=== PATIENT | female | born 1990 | race Caucasian/White ===

== ENCOUNTER 2017-05-22 14:58 | Inpatient (IN) | payer MEDICAID ==
[2017-05-22 15:18] VITALS: BMI 16.8
--- NOTE | 2017-05-22 15:50 | C.PDOC ---
History Of Present Illness 26 year old female presents to ED requesting Heroin detox last used this morning. Patient states she uses intravenously and denies suicidal ideation, homicidal ideation or any physical complaints at this time. Time Seen by Provider: 05/22/17 15:25 Chief Complaint (Nursing): Substance Abuse History Per: Patient History/Exam Limitations: no limitations Onset/Duration Of Symptoms: Days Current Symptoms Are (Timing): Still Present Suicide/Self Injury Attempted (Context): None Past Medical History Reviewed: Historical Data, Nursing Documentation, Vital Signs Vital Signs: Last Vital Signs Temp 97.6 F 05/22/17 15:28 Pulse 79 05/22/17 15:28 Resp 18 05/22/17 15:28 BP 101/66 05/22/17 15:28 Pulse Ox 97 05/22/17 16:43 - Medical History PMH: Asthma Surgical History: No Surg Hx Family History: States: No Known Family Hx - Social History Hx Tobacco Use: Yes Hx Alcohol Use: No Hx Substance Use: Yes - Immunization History Hx Tetanus Toxoid Vaccination: No Hx Influenza Vaccination: No Hx Pneumococcal Vaccination: No Review Of Systems Constitutional: Negative for: Fever, Chills Cardiovascular: Negative for: Chest Pain Respiratory: Negative for: Shortness of Breath Gastrointestinal: Negative for: Nausea, Vomiting Skin: Negative for: Rash Psych: Negative for: Suicidal ideation, Withdrawal Physical Exam - Physical Exam Appears: Non-toxic, No Acute Distress Skin: Warm, Dry, No Rash Head: Atraumatic, Normacephalic Eye(s): bilateral: Normal Inspection Oral Mucosa: Moist Neck: Normal ROM, Supple Cardiovascular: Rhythm Regular, No Murmur Respiratory: Normal Breath Sounds, No Rales, No Rhonchi, No Wheezing Gastrointestinal/Abdominal: Soft, No Tenderness, No Guarding, No Rebound Extremity: Bilateral: Atraumatic, Normal ROM Neurological/Psych: Oriented x3, Normal Speech ED Course And Treatment - Laboratory Results Result Diagrams: 05/22/17 16:02 05/22/17 16:02 O2 Sat by Pulse Oximetry: 97 (RA) Pulse Ox Interpretation: Normal Medical Decision Making Medical Decision Making: Patient is requesting detox from opiates. Labs ordered for medical clearance and Crisis eval 1640 Labs reviewed, +opiates and nitrates. Patient to be treated for UTI with Cipro and is medically cleared and stable for admission. Recommend Cipro BID for 5 days. Disposition - Disposition Disposition: HOSPITALIZED Disposition Time: 17:18 Condition: STABLE - POA Present On Arrival: None - Clinical Impression Clinical Impression: Opiate dependence, UTI (urinary tract infection) - PA / FILTER TIP CATCHER / Resident Statement MD/DO has reviewed & agrees with the documentation as recorded. - Scribe Statement The provider has reviewed the documentation as recorded by the Maribel Black All medical record entries made by the Maribel were at my direction and personally dictated by me. I have reviewed the chart and agree that the record accurately reflects my personal performance of the history, physical exam, medical decision making, and the department course for this patient. I have also personally directed, reviewed, and agree with the discharge instructions and disposition.
[2017-05-22 15:59] LABS: HCG,QUALITATIVE URINE NEGATIVE (NEGATIVE)
[2017-05-22 16:08] LABS: SQUAMOUS EPITHIAL 1 /hpf (0-5); URINE BACTERIA MANY (<OCC); URINE BILIRUBIN NEGATIVE (NEGATIVE); URINE BLOOD NEGATIVE (NEGATIVE); URINE CLARITY Hazy (Clear); URINE COLOR Amber (YELLOW); URINE GLUCOSE (UA) NORMAL (Normal); URINE LEUKOCYTE ESTERASE NEG Leu/uL (Negative); URINE NITRATE POSITIVE (NEGATIVE); URINE PROTEIN NEGATIVE (NEGATIVE)
[2017-05-22 16:09] LABS: BASO % 0.5 % (0.0-2.0); EOS % 0.2 % (0.0-4.0); HEMOGLOBIN 13.7 g/dL (11.0-16.0); LYMPH # 1.5 K/uL (1.0-4.3); LYMPH % 25.9 % (20.0-40.0); MEAN CORPUSCULAR HEMOGLOBIN 30.3 pg (27.0-31.0); MEAN PLATELET VOLUME 7.5 fL (7.2-11.7); MONO # 0.3 K/uL (0.0-0.8); MONO % 4.6 % (0.0-10.0); NEUT # 4.1 K/uL (1.8-7.0); NEUT % 68.8 % (50.0-75.0); RBC 4.52 Mil/uL (3.80-5.20); RED CELL DISTRIBUTION WIDTH 14.1 % (11.5-14.5); WHITE BLOOD COUNT 5.9 K/uL (4.8-10.8)
[2017-05-22 16:22] LABS: ALB/GLOB RATIO 1.1 (1.0-2.1); ALBUMIN 4.7 g/dL (3.5-5.0); ALT/SGPT 39 U/L (9-52); AST/SGOT 38 U/L (14-36); BLOOD UREA NITROGEN 16 mg/dL (7-17); GFR AFRICAN-AMERICAN > 60; GFR NON-AFRICAN AMERICAN > 60
[2017-05-22 16:27] LABS: BARBITURATES, UR NEGATIVE (NEGATIVE); BENZODIAZEPINES, UR NEGATIVE (NEGATIVE); PHENCYCLIDINE, UR NEGATIVE (NEGATIVE)
[2017-05-22 16:28] LABS: OPIATES, UR POSITIVE (NEGATIVE)
--- NOTE | 2017-05-22 17:52 | PCM.BM ---
<Marlena Rodriguez - Last Filed: 05/22/17 17:51> Treatment Plan Problems - Problems identified on initial assessmt potiential for opiate withdrawal Date Initiated: 05/22/17 Time Initiated: 17:51 Assessment reference: NA Status: Active Treatment assets and liabiliti Patient Assests: ADL independent, physically healthy, good support system Patient Liabilities: substance abuse - Milieu Protocol Maintain good personal hygiene: daily Encourage regular showers, daily Remind patient to perform daily oral care, daily Assist patient to perform ADL's Maintain personal safety: every shift Educate patient to report safety concerns to staff, every shift Monitor environment for contraband/sharps Medication safety: Monitor for expected outcome, potential side effects: every shift, Assess barriers to learning: every shift, Assess readiness for medication education: every shift <Irene Lemus - Last Filed: 05/24/17 00:46> - Diagnosis (1) Opiate dependence Status: Acute Interventions: 05/24/17 00:46 * Assess 7x/week regarding severity of withdrawal * Educate regarding risks, benefits, side effects and alternatives of medications * Use Motivational Interviewing for abstinence * Use CBT for relapse prevention * Medication management for withdrawal symptoms * Encourage medication assisted treatment * <Leann Fry - Last Filed: 05/24/17 11:40> Family Contact Family involvement: Nakulliy/SO not involved - Goals for Treatment Patient goals for treatment: Complete detox and attend 12-step meetings. Discharge/Continuing Care - Education Needs Education Needs: Patient Medication, Patient Diagnosis/Disease Process, Patient Coping Skills, Patient Anger Management skills, Patient Placement options, Patient Community resources - Discharge Discharge Criteria: No longer exhibiting s/s of withdrawal, Reduction of target symptoms Discharge to:: Home - Treatment Team Participation Patient/Family/SO Statement: 05/24/17 11:39 "I just wanna go to meetings and evangelical". Discussed with Family/SO: No Was Patient/Family/SO present at Treatment Team Meeting: Yes
[2017-05-22] MEDS ORDERED: Aluminum Hydroxide/Magnesium Hydroxide Susp (30 mL) PO PRN (18:24)
[2017-05-22] MEDS ORDERED: Albuterol HFA 90 mcg/actuation (8 g) INH PRN (22:17)
[2017-05-23] MEDS ORDERED: Buprenorphine Hydrochloride 2 mg SL ONE ×3 (01:13→16:00)
--- NOTE | 2017-05-23 12:37 | PCM.PSYCH ---
Initial Psychiatric Evaluation - Initial Psychiatric Evaluation Type of Admission: Voluntary Legal Status: Capacity Chief Complaint (in patient's own words): "Heroin" History of Present Illness and Precipitating Events: The pt is seen, chart reviewed and case discussed She is a 26 y/o LF, single with a 7 y/o daughteShe lives with her mother and daughter and brother Unemployed She is here for heroin detox: using 10+ bags/day IV x3 years This is her 2nd detox but she has not been to any other type of treatments She denies all other drugs and alcohol Reports anxiety but denies depression, isaac or psychosis Past psych hx: Anxiety Medical hx: Denies Family psych hx: Denies Current Medications: Active Medications Generic Name Dose Route Start Last Admin Trade Name Freq PRN Reason Stop Dose Admin Al Hydrox/Mg Hydrox/Simethicone 30 ml 05/22/17 18:24 Maalox 30 Ml PO TID PRN Indigestion / Heartburn Albuterol 1 puff 05/22/17 22:17 Ventolin Hfa 90 Mcg/Actuation (8 G) INH RQ6 PRN Shortness of Breath Buprenorphine HCl 2 mg 05/23/17 16:00 Subutex SL 05/23/17 16:01 ONCE ONE Dicyclomine HCl 10 mg 05/22/17 18:25 Bentyl PO Q4 PRN Other Gabapentin 300 mg 05/22/17 18:30 05/23/17 10:14 Neurontin PO 300 mg BID GILMA Administration Hydroxyzine HCl 25 mg 05/22/17 18:27 05/23/17 02:03 Atarax PO 25 mg Q6 PRN Administration Anxiety Ibuprofen 400 mg 05/22/17 18:26 05/23/17 03:23 Motrin Tab PO 400 mg Q6 PRN Administration Pain, moderate (4-7) Loperamide HCl 2 mg 05/22/17 18:24 Imodium PO Q8 PRN Diarrhea Ondansetron HCl 4 mg 05/22/17 18:24 Zofran Tab PO Q8 PRN Nausea/Vomiting Trazodone HCl 50 mg 05/22/17 22:00 05/22/17 21:07 Desyrel PO 50 mg HS GILMA Administration Past Psychiatric History - Past Psychiatric History Previous Treatment History: None Pertinent Medical Hx (Current Medical&Sleep Prob, Allergies): Allergies Allergy/AdvReac Type Severity Reaction Status Date / Time No Known Allergies Allergy Verified 05/22/17 15:17 No Known Home Med 05/22/17 Review of Systems - Psychiatric Psychiatric: Abnormal Sleep Pattern, Anxiety, Difficulty Concentrating, Irritability, Mood Swings. absent: Homicidal Ideation, Suicidal Ideation Mental Status Examination - Personal Presentation Personal Presentation: Looks older than stated age - Affect Affect: Constricted - Motor Activity Motor Activity: Calm - Reliability in Providing Information Reliability in Providing Information: Good - Speech Speech: Organized - Mood Mood: Anxious - Formal Thought Process Formal Thought Process: No Impairment - Cognitive Functions Orientation: Person, Place, Situation, Time Sensorium: Alert Attention/Concentration: Attentive Abstract Thinking: [place] Estimate of Intelligence: Average Judgement: Intact, as evidence by: Insight regarding need for hospitalization Memory: Recent intact, as evidence by: Ability to recall events of the day, Remote intact, as evidenced by: Abilit to recall sig. life events - Risk Risk: Diminished functioning - Strength & Assets Inventory Strength & Assets Inventory: Life experience, Cooperative - Limitations Limitations: Other DSM 5 DX - DSM 5 DSM 5 Diagnosis: Opioid withdrawal Opioid use d/o - severe JUSTYN r/o personality d/o - Recommended/Plan of Treatment Treatment Recommendations and Plan of Treatment: Subutex detox As needed medications Gabapentin for augmentation All risks, benefits and alternatives of medications, including no medications, discussed and the patient understood and agreed. Attend groups and activities Supportive therapy and psychoeducation [place] for abstinence CBT for relapse prevention Encourage MAT Refer to rehab or IOP Attend self-help groups as well 34 min Projected ELOS: 4-5 days Prognosis: good w treatment - Smoking Cessation Smoking Cessation Initiated: Yes
[2017-05-24] MEDS: Buprenorphine Hydrochloride 2 mg SL SCH (10:16)
--- NOTE | 2017-05-24 11:18 | PCM.PYCHPN ---
Psychiatric Progress Note - Psychiatric Progress Note Patient seen today, length of contact: 17 min Patient Chief Complaint: "I am better" Problems Identified/Issues Discussed: The pt is seen, chart reviewed, case discussed with staff. The pt is compliant with medications and reports no side-effects. Symptoms are improving but needs more time to stabilize. After care discussed, support and psychoeducation given. She asked to leave but understood that it would cause relapse, OD and even , plus we will have to inform [facility] of her wanting to be with her daughter. She agreed to stay. She is impulsive and has low motivation and insight. Medication Change: Yes (detox) Medical Record Reviewed: Yes Mental Status Examination - Cognitive Function Orientation: Person, Place, Situation, Time Memory: Intact Attention: Poor Concentration: Poor Association: WNL Fund of Knowledge: WNL - Mood Mood: Anxious - Affect Affect: Constricted - Speech Speech: Appropriate - Formal Thought Process Formal Thought Process: No Impairment - Suicidal Ideation Suicidal Ideation: No - Homicidal Ideation Homicidal Ideation: No Goal/Treatment Plan - Goal/Treatment Plan Need for Continued Stay: Discharge may exacerbated symptoms, Severe functional impairment Progress Toward Problem(s) and Goals/Treatment Plan: Subutex detox As needed medications Gabapentin for augmentation All risks, benefits and alternatives of medications, including no medications, discussed and the patient understood and agreed. Attend groups and activities Supportive therapy and psychoeducation [place] for abstinence CBT for relapse prevention Encourage MAT Refer to rehab or IOP Attend self-help groups as well Estimated Date of D/C: 05/26/17
[2017-05-25] MEDS: Buprenorphine Hydrochloride 2 mg SL SCH (09:26)
--- NOTE | 2017-05-25 11:49 | PCM.PYCHPN ---
Psychiatric Progress Note - Psychiatric Progress Note Patient seen today, length of contact: 16 min Patient Chief Complaint: "I am staying" Problems Identified/Issues Discussed: The pt is seen, chart reviewed, case discussed with staff. Support given, CBT and [place] used briefly No new symptoms reported, improving slowly and needs more time No SEs from medications, risks discussed. After care discussed Medication Change: Yes (detox chgs daily) Medical Record Reviewed: Yes Mental Status Examination - Cognitive Function Orientation: Person, Place, Situation, Time Memory: Intact Attention: Poor Concentration: Poor Association: WNL Fund of Knowledge: WNL - Mood Mood: Anxious - Affect Affect: Constricted - Speech Speech: Appropriate - Formal Thought Process Formal Thought Process: No Impairment - Suicidal Ideation Suicidal Ideation: No - Homicidal Ideation Homicidal Ideation: No Goal/Treatment Plan - Goal/Treatment Plan Need for Continued Stay: Discharge may exacerbated symptoms, Severe functional impairment Progress Toward Problem(s) and Goals/Treatment Plan: Subutex detox As needed medications Gabapentin for augmentation All risks, benefits and alternatives of medications, including no medications, discussed and the patient understood and agreed. Attend groups and activities Supportive therapy and psychoeducation [place] for abstinence CBT for relapse prevention Encourage MAT Refer to rehab or IOP Attend self-help groups as well Estimated Date of D/C: 05/26/17
[2017-05-25 21:20] VITALS: RESP 18
[2017-05-26] MEDS: Buprenorphine Hydrochloride 2 mg SL SCH (09:13)
[2017-05-26 09:16] VITALS: BP 109/75; PULSE 94; TEMP 98.1; O2SAT 99
--- NOTE | 2017-05-26 10:38 | PCM.PYCHDC ---
Mental Status Examination - Mental Status Examination Orientation: Person, Place, Situation, Time Memory: Intact Mood: Neutral Affect: Broad Speech: Appropriate Attention: WNL Concentration: WNL Association: WNL Fund of Knowledge: WNL Formal Thought Process: No Impairment Description of patient's judgement and insight: good/good Psychotic Thoughts and Behaviors: denied AVH, Paranoid delusions, grandiose delusions Suicidal Ideation: No Current Homicidal Ideation?: No Plan: Denied intent or plan Discharge Summary - Discharge Note Reason for Hospitalization: She is a 26 y/o LF, single with a 7 y/o daughteShe lives with her mother and daughter and brother Unemployed She is here for heroin detox: using 10+ bags/day IV x3 years This is her 2nd detox but she has not been to any other type of treatments She denies all other drugs and alcohol Reports anxiety but denies depression, isaac or psychosis Past psych hx: Anxiety Medical hx: Denies Family psych hx: Denies Consultations:: List each consultation separately and include: 1. Reason for request. 2. Findings. 3. Follow-up Summary of Hospital Course include:: 1. Description of specific treatment plan utilized for patients during their course of treatmen. 2. Summarize the time- course for resolution of acute symptoms and/or regressed behaviors. 3. Describe issues identified and worked on during hospitalization. 4. Describe medication utilized. 5. Describe medical problems identified and treated. 6. Reassessment of suicide risk Summary of Hospital Course: The pt was admitted and started on detox treatment with psychotherapy, support, psychoeducation and medications. [place] and CBT techniques were used. The pt was compliant with the treatment. The pt attended groups and activities, as well as milieu therapy. All the risks and benefits of medications were discussed and the patient understood and agreed. The pt improved with the treatment. Pt appreciate the treatment and care which was provided to him. At the time of d/c pt denied any depresive symptoms, manic symptoms. He denied any SI, HI, intent or plan. Pt denied any perceptual disturbances. He had behavioral issues. Psychoeducation was provided to the pt to be compliant with the medication, treatment plan and f/u plan after the discharge. After care discussed with the patient. - Final Diagnosis (DSM 5) Condition upon Discharge: STABLE DSM 5: Opioid withdrawal Opioid use d/o - severe JUSTYN r/o personality d/o Disposition: HOME/ ROUTINE Follow-up Treatment Plan: please see after care plan Prescriptions/Medication Reconciliation: Ciprofloxacin [Cipro] 500 mg PO BID #6 tab Gabapentin [Neurontin] 300 mg PO BID #60 cap traZODone [Desyrel] 50 mg PO HS #30 tab - Smoking Cessation Smoking Cessation Medication prescribed: Yes - Antipsychotic Medications Pt discharged on 2 or more routine antipsychotic medications: No
== END 2017-05-26 11:00 | disposition home or self-care (01) | DRG 895 ==
LOC: C.ER 14:58 → C.7D 17:13
PROC: HZ2ZZZZ Detoxification Services for Substance Abuse Treatment (ICD-10-PCS; principal; 2017-05-22)
PROC: HZ59ZZZ Individual Psychotherapy for Substance Abuse Treatment, Supportive (ICD-10-PCS; 2017-05-22)
PROC: HZ52ZZZ Individual Psychotherapy for Substance Abuse Treatment, Cognitive-Behavioral (ICD-10-PCS; 2017-05-22)
PROC: HZ56ZZZ Individual Psychotherapy for Substance Abuse Treatment, Psychoeducation (ICD-10-PCS; 2017-05-22)
DX: F11.23 Opioid dependence with withdrawal (principal); F41.9 Anxiety disorder, unspecified; N39.0 Urinary tract infection, site not specified; F91.9 Conduct disorder, unspecified; J45.909 Unspecified asthma, uncomplicated; Z87.891 Personal history of nicotine dependence; R45.87 Impulsiveness

== ENCOUNTER 2018-07-20 20:48 | Inpatient (IN) | payer MEDICAID ==
[2018-07-20 20:49] VITALS: BMI 16.8
[2018-07-20 21:35] LABS: BASO % 0.5 % (0.0-2.0); EOS # 0.1 K/uL (0.0-0.7); EOS % 0.8 % (0.0-4.0); HEMOGLOBIN 12.7 g/dL (11.0-16.0); LYMPH # 2.8 K/uL (1.0-4.3); MEAN CELL VOLUME 89.2 fL (81.0-99.0); MEAN CORPUSCULAR HEMOGLOBIN 29.3 pg (27.0-31.0); MEAN CORPUSCULAR HGB CONC 32.9 g/dL (33.0-37.0); MEAN PLATELET VOLUME 7.4 fL (7.2-11.7); MONO # 0.6 K/uL (0.0-0.8); MONO % 7.5 % (0.0-10.0); NEUT # 4.8 K/uL (1.8-7.0); NEUT % 57.2 % (50.0-75.0); RBC 4.34 Mil/uL (3.80-5.20); RED CELL DISTRIBUTION WIDTH 14.7 % (11.5-14.5); WHITE BLOOD COUNT 8.4 K/uL (4.8-10.8)
--- NOTE | 2018-07-20 21:36 | C.PDOC ---
History Of Present Illness 27 y/o female pt presents to the ER requesting detox for heroin. Pt reports she used 4-6 bags of heroin through IV daily, last use was 30 minutes ago. Pt also smokes cigarettes. Pt denies any physical and psychiatric complaints. Time Seen by Provider: 07/20/18 21:22 Chief Complaint (Nursing): Psychiatric Evaluation History Per: Patient History/Exam Limitations: no limitations Onset/Duration Of Symptoms: Days Current Symptoms Are (Timing): Still Present Suicide/Self Injury Attempted (Context): None Modifying Factor(s): Other (heroin) Past Medical History Reviewed: Historical Data, Nursing Documentation, Vital Signs Vital Signs: Last Vital Signs Temp 97.9 F 07/20/18 20:57 Pulse 106 H 07/20/18 20:57 Resp 18 07/20/18 20:57 BP 108/76 07/20/18 20:57 Pulse Ox 99 07/20/18 20:57 - Medical History PMH: Asthma - [facility] Procedures DETOXIFICATION SERVICES FOR SUBSTANCE ABUSE TREATMENT (05/22/17) INDIV PSYCHOTHERAPY FOR SUBSTANCE ABUSE TREATMENT, SUPPORT (05/22/17) INDIV PSYCHOTHERAPY FOR SUBSTANCE ABUSE, COGNITIV BEHAVIORAL (05/22/17) INDIV PSYCHOTHERAPY FOR SUBSTANCE ABUSE, PSYCHOEDUCATION (05/22/17) Family History: States: No Known Family Hx - Social History Hx Tobacco Use: Yes Hx Alcohol Use: No Hx Substance Use: Yes - Immunization History Hx Tetanus Toxoid Vaccination: No Hx Influenza Vaccination: No Hx Pneumococcal Vaccination: No Review Of Systems Constitutional: Positive for: Other (requesting detox for heroin). Negative for: Fever, Chills Gastrointestinal: Negative for: Nausea, Vomiting Neurological: Negative for: Weakness, Numbness Psych: Negative for: Suicidal ideation, Other (Hi) Physical Exam - Physical Exam Appears: Non-toxic, No Acute Distress Skin: Warm, Dry Head: Normacephalic Eye(s): bilateral: EOMI Cardiovascular: Rhythm Regular, No Murmur Respiratory: Normal Breath Sounds, No Rales, No Rhonchi, No Wheezing Extremity: Normal ROM (x4), Capillary Refill (<2 sec), No Deformity, No Swelling, Other (track kurtz on b/l antecubital fossa) Neurological/Psych: Oriented x3, Normal Speech, Normal Cognition ED Course And Treatment - Laboratory Results Result Diagrams: 07/20/18 21:26 07/20/18 21:26 O2 Sat by Pulse Oximetry: 99 (RA) Pulse Ox Interpretation: Normal Medical Decision Making Medical Decision Making: Plans: -- chem labs -- blood work 2158 pt is medically cleared for detox admission. pt with positive nitrite and bacteria in urine, will tx with macrobid for uti. recommend macrobid 100 mg po bid x 7 days. f/u urine culture for sensitivity. Disposition Discussed With Dr.: Claus Tucker Doctor Will See Patient In The: Hospital - Disposition Disposition: HOSPITALIZED Disposition Time: 23:38 Condition: GOOD - Clinical Impression Clinical Impression: Opioid use disorder, severe, dependence, UTI (urinary tract infection) - PA / OVEREDGER / Resident Statement / has reviewed & agrees with the documentation as recorded. - Scribe Statement The provider has reviewed the documentation as recorded by the Maribel Álvarez Do All medical record entries made by the Scribe were at my direction and personally dictated by me. I have reviewed the chart and agree that the record accurately reflects my personal performance of the history, physical exam, medical decision making, and the department course for this patient. I have also personally directed, reviewed, and agree with the discharge instructions and disposition.
[2018-07-20 21:49] LABS: BARBITURATES, UR NEGATIVE (NEGATIVE); BENZODIAZEPINES, UR NEGATIVE (NEGATIVE); HCG,QUALITATIVE URINE NEGATIVE (NEGATIVE); PHENCYCLIDINE, UR NEGATIVE (NEGATIVE)
[2018-07-20 21:50] LABS: OPIATES, UR POSITIVE (NEGATIVE); SQUAMOUS EPITHIAL < 1 /hpf (0-5); URINE BACTERIA MANY (<OCC); URINE BILIRUBIN NEGATIVE (NEGATIVE); URINE BLOOD NEGATIVE (NEGATIVE); URINE CLARITY Hazy (Clear); URINE GLUCOSE (UA) NORMAL (Normal); URINE LEUKOCYTE ESTERASE NEG Leu/uL (Negative); URINE PROTEIN NEGATIVE (NEGATIVE); URINE UROBILINOGEN NORMAL mg/dL (0.2-1.0)
[2018-07-20 21:51] LABS: URINE COLOR YELLOW (YELLOW)
[2018-07-20 21:56] LABS: ALB/GLOB RATIO 1.5 (1.0-2.1); ALBUMIN 4.8 g/dL (3.5-5.0); ALT/SGPT 12 U/L (9-52); AST/SGOT 28 U/L (14-36); BLOOD UREA NITROGEN 14 mg/dL (7-17); CALCIUM 10.1 mg/dl (8.6-10.4); GFR NON-AFRICAN AMERICAN > 60
[2018-07-21] MEDS ORDERED: Albuterol HFA 90 mcg/actuation (8 g) INH PRN (11:34)
[2018-07-21] MEDS ORDERED: Aluminum Hydroxide/Magnesium Hydroxide Susp (30 mL) PO PRN (11:36)
[2018-07-21] MEDS ORDERED: Albuterol 0.083% Inhal Sol (2.5 mg/3 mL) UD INH PRN (11:47)
--- NOTE | 2018-07-21 12:20 | PCM.PSYCH ---
Initial Psychiatric Evaluation - Initial Psychiatric Evaluation Type of Admission: Voluntary Legal Status: Capacity Chief Complaint (in patient's own words): I need help for my heroin use. History of Present Illness and Precipitating Events: Patient is a 27 years old, single, employed, female with no previous psychiatric history was admitted due to withdrawing from heroine. Initially patient was in observation and later she was transferred to inpatient detox once patient started having withdrawal symptoms. Her cows score was about 10. Opioid: Patient started using heroin 2 years ago, increased gradually up to 14 bags daily, IV. Also last used of heroine was yesterday, 6 bags. Her longest period of abstinence was one year until 2 months ago when she relapsed again. History of 1 previous detox but no rehab. Patient denied use of any other drugs including alcohol, cocaine or cannabis. She smokes 4-5 cigarettes daily and is refusing for nicotine patch. Patient was born in [place] and has high school graduation. 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 Lives with mother. Never and has no children. Her height is 5 feet 3 inches and weight is 90 pounds. Patient denied any eating problems. Current Medications: Active Medications Generic Name Dose Route Start Last Admin Trade Name Freq PRN Reason Stop Dose Admin Al Hydrox/Mg Hydrox/Simethicone 30 ml 07/21/18 11:36 Maalox 30 Ml PO TID PRN Indigestion / Heartburn Albuterol Sulfate 2.5 mg 07/21/18 11:47 Albuterol 0.083% Inhal Raegan (2.5 Mg/3 Ml) Ud INH RQ6 PRN Shortness of Breath Clonidine HCl 0.1 mg 07/21/18 11:36 Catapres PO Q4 PRN COWS Score More or Equal to 5 Dicyclomine HCl 10 mg 07/21/18 11:36 07/21/18 12:03 Bentyl PO 10 mg Q6 PRN Administration Muscle spasm Hydroxyzine HCl 25 mg 07/21/18 11:54 Atarax PO Q8 PRN Anxiety Ibuprofen 400 mg 07/21/18 11:36 Motrin Tab PO Q6 PRN Pain, moderate (4-7) Loperamide HCl 2 mg 07/21/18 11:38 Imodium PO Q8 PRN Diarrhea Nitrofurantoin Macrocrystals 100 mg 07/21/18 18:00 Macrobid PO 07/25/18 18:01 Q12H [facility] Protocol Ondansetron HCl 4 mg 07/21/18 11:36 Zofran Tab PO Q8 PRN Nausea/Vomiting Pneumococcal Polyvalent Vaccine 0.5 ml 07/24/18 10:00 Pneumovax 23 Vaccine IM 07/24/18 10:01 .ONCE ONE Trazodone HCl 50 mg 07/21/18 22:00 Desyrel PO HS [facility] Past Psychiatric History - Past Psychiatric History Previous Treatment History: Inpatient At [facility]: [facility] History of ETOH/Drug Use: See HPI History of Family Illness: None reported Pertinent Medical Hx (Current Medical&Sleep Prob, Allergies): Allergies Allergy/AdvReac Type Severity Reaction Status Date / Time No Known Allergies Allergy Verified 07/20/18 20:55 Albuterol HFA [Ventolin HFA 90 mcg/actuation (8 g)] 1 puff INH RQ6 PRN inhaler 05/25/17 Asthma Review of Systems - Psychiatric Psychiatric: As Per HPI, Anxiety, Change in Appetite Mental Status Examination - Personal Presentation Personal Presentation: Looks stated age - Affect Affect: Other (Appropriate) - Motor Activity Motor Activity: Calm - Reliability in Providing Information Reliability in Providing Information: Fair - Speech Speech: Organized - Mood Mood: Anxious - Formal Thought Process Formal Thought Process: No Impairment - Hallucinations/Delusions Hallucinations: Other (None reported) Delusions: Other - Obsessions/Compulsions Obsessions: None Compulsions: None - Cognitive Functions Orientation: Person, Place, Situation, Time Sensorium: Alert Attention/Concentration: Attentive Abstract Thinking: [place] Estimate of Intelligence: Average Judgement: Intact, as evidence by: Insight regarding need for hospitalization Memory: Recent intact, as evidence by: Ability to recall events of the day, Remote intact, as evidenced by: Ability to recall historical events - Risk Risk: Withdrawal, Diminished functioning - Strength & Assets Inventory Strength & Assets Inventory: Family support, Employment history, Cooperative - Limitations Limitations: Other (Lives with mother) DSM 5 DX - DSM 5 DSM 5 Diagnosis: Opioid withdrawal Opioid use disorder severe - Recommended/Plan of Treatment Treatment Recommendations and Plan of Treatment: Patient education. Supportive therapy. CBT for relapse prevention. [place] for abstinence. We will start methadone taper for opioid withdrawal symptoms. Other PRN medications. Patient wants to go to [facility] for follow-up care after discharge from the hospital. Projected ELOS: 4-5 days Discharge Plan and Discharge Criteria: No or minimal withdrawal symptoms - Smoking Cessation Smoking Cessation Initiated: No
--- NOTE | 2018-07-21 12:20 | CP.PCM.PCO ---
Physician Communication Note - Physician Communication Note Physician Communication Note: Pt started withdrawing significantly. Admitted to inpatient detox now.
--- NOTE | 2018-07-21 12:44 | PCM.BM ---
<NoemyKeith - Last Filed: 07/21/18 12:41> Treatment Plan Problems - Problems identified on initial assessmt Denial Date Initiated: 07/21/18 Time Initiated: 12:44 Assessment reference: NA Status: Active Defensive Coping Date Initiated: 07/21/18 Time Initiated: 12:43 Assessment reference: NA Status: Active Low Motivation to Change Date Initiated: 07/21/18 Time Initiated: 12:44 Assessment reference: NA Status: Active Treatment assets and liabiliti Patient Assests: ADL independent, physically healthy, good support system Patient Liabilities: substance abuse - Milieu Protocol Maintain good personal hygiene: daily Encourage regular showers, daily Remind patient to perform daily oral care, daily Assist patient to perform ADL's Maintain personal safety: every shift Educate patient to report safety concerns to staff, every shift Monitor environment for contraband/sharps Medication safety: Monitor for expected outcome, potential side effects: every shift, Assess barriers to learning: every shift, Assess readiness for medication education: every shift <Irene Lemus - Last Filed: 07/22/18 23:37> Treatment Plan Problems - Problems identified on initial assessmt Denial Date Initiated: 07/21/18 Time Initiated: 12:44 Assessment reference: NA Status: Active Defensive Coping Date Initiated: 07/21/18 Time Initiated: 12:43 Assessment reference: NA Status: Active Low Motivation to Change Date Initiated: 07/21/18 Time Initiated: 12:44 Assessment reference: NA Status: Active Problem 2 Date Initiated: 07/21/18 Time Initiated: 12:43 Assessment reference: NA Status: Active - Diagnosis (1) Opioid use disorder, severe, dependence Status: Acute Interventions: 07/22/18 23:37 * Assess 7x/week regarding severity of withdrawal * Educate regarding risks, benefits, side effects and alternatives of medications * Use Motivational Interviewing for abstinence * Use CBT for relapse prevention * Medication management for withdrawal symptoms * Encourage medication assisted treatment *
--- NOTE | 2018-07-22 08:46 | PCM.PYCHPN ---
Psychiatric Progress Note - Psychiatric Progress Note Patient seen today, length of contact: 16 min Patient Chief Complaint: "I was sick" Problems Identified/Issues Discussed: She started to withdraw and was medicated. She is now switched from observation status to inpatient. The pt is seen, chart reviewed, case is discussed with staff. The pt is compliant with medications and reports no side-effects. Symptoms are improving but needs more time to stabilize and to avoid relapse. Pt attends groups and activities. Support given, psycho-education provided. After care discussed. Medication Change: Yes (detox changes daily) Medical Record Reviewed: Yes Mental Status Examination - Cognitive Function Orientation: Person, Place, Situation, Time Memory: Intact Attention: WNL Concentration: Poor Association: WNL Fund of Knowledge: WNL - Mood Mood: Anxious - Affect Affect: Constricted - Speech Speech: Appropriate - Formal Thought Process Formal Thought Process: No Impairment - Suicidal Ideation Suicidal Ideation: No - Homicidal Ideation Homicidal Ideation: No Goal/Treatment Plan - Goal/Treatment Plan Need for Continued Stay: Discharge may exacerbated symptoms, Severe functional impairment Progress Toward Problem(s) and Goals/Treatment Plan: Continue medications Support and psychoeducation daily Attend groups and activities daily Individual therapy After care planning by counselors
[2018-07-23 13:13] VITALS: RESP 18
--- NOTE | 2018-07-24 08:50 | PCM.PYCHDC ---
Mental Status Examination - Mental Status Examination Orientation: Person, Place, Situation, Time Memory: Intact Mood: Anxious Affect: Constricted Speech: Appropriate Attention: WNL Concentration: WNL Association: WNL Fund of Knowledge: WNL Formal Thought Process: No Impairment Suicidal Ideation: No Current Homicidal Ideation?: No Discharge Summary - Discharge Note Reason for Hospitalization: Opioid detox Consultations:: List each consultation separately and include: 1. Reason for request. 2. Findings. 3. Follow-up Summary of Hospital Course include:: 1. Description of specific treatment plan utilized for patients during their course of treatmen. 2. Summarize the time- course for resolution of acute symptoms and/or regressed behaviors. 3. Describe issues identified and worked on during hospitalization. 4. Describe medication utilized. 5. Describe medical problems identified and treated. 6. Reassessment of suicide risk Summary of Hospital Course: The pt was admitted and started on treatment with psychotherapy, support, psychoeducation and medications. [place] and CBT used. The pt attended groups and activities, as well as milieu therapy. All the risks and benefits of medications are discussed and the patient understood and agreed. The pt improved with the treatments provided. After care discussed with the patient. She will go to [facility] [place], [place] in . - Final Diagnosis (DSM 5) Condition upon Discharge: GOOD DSM 5: Opioid withdrawal Opioid use disorder severe Disposition: HOME/ ROUTINE Follow-up Treatment Plan: Continue below medications after discharge. Follow after care plan as discussed. Use relapse prevention skills Return to ER or call 911 if suicidal, homicidal or symptoms relapse. Stay away from stress, alcohol and drugs. See primary doctor regularly and get labs. Prescriptions/Medication Reconciliation: hydrOXYzine HCl [Atarax] 25 mg PO BID PRN #60 tab PRN Reason: Anxiety Nitrofurantoin Macrocrystals [Macrobid] 100 mg PO Q12H #10 cap QUEtiapine [SEROquel] 50 mg PO HS PRN #30 tab PRN Reason: Insomnia traZODone [Desyrel] 100 mg PO HS #30 tab
[2018-07-24 09:47] VITALS: BP 108/75; PULSE 93; TEMP 97.5; O2SAT 98
[2018-07-24] MEDS ORDERED: Pneumococcal 23-Valent Vaccine IM ONE (10:00)
== END 2018-07-24 09:45 | disposition home or self-care (01) | DRG 773 ==
LOC: SUPCPDRO 20:48 → C.ER 20:48 → C.9E 23:36 → C.7D 07-21 05:40 → OBSVTOIN 07-22 08:45
PROC: GZ56ZZZ Individual Psychotherapy, Supportive (ICD-10-PCS; principal; 2018-07-22)
DX: F11.23 Opioid dependence with withdrawal (principal); N39.0 Urinary tract infection, site not specified; F17.210 Nicotine dependence, cigarettes, uncomplicated; J45.909 Unspecified asthma, uncomplicated